=== PATIENT | female | born 1960 | race Caucasian/White ===

== ENCOUNTER → 2017-05-07 | Outpatient (CLI) | payer OTHER ==
--- NOTE | 2017-05-07 09:43 | DIAGNOSTIC IMAGING REPORT ---
R HIP UNILATERAL MIN 2 VIEWS CLINICAL HISTORY: Right hip pain. COMPARISON: None FINDINGS: Alignment of the right hip is anatomic. No fracture or suspicious osseous lesion is present. Right hip joint space is preserved. There is mild osteophytosis of the right hip. There is no evidence for avascular necrosis. IMPRESSION: Mild osteoarthritis of the right hip. Electronically signed by: Hai Carreno M.D. 05/07/2017 9:41 AM Dictated Date/Time: 05/07/2017 9:41 AM
== END | disposition home or self-care (01) ==
LOC: C.RDSM 09:08
PROVIDERS: ATTEND Internal Medicine
DX: M16.11 Unilateral primary osteoarthritis, right hip (principal)